=== PATIENT | female | born 1940 ===

== ENCOUNTER 2018-07-31 16:16 | Observation (INO) | payer MEDICARE ==
--- NOTE | 2018-07-31 16:39 | C.PDOC ---
History Of Present Illness 78 y/o female presents to ED with family member complaining of new confusion that has been going on for 5-6 hours. As per family member, patient has new left sided facial droop since this afternoon; however patient states "I'm fine. I don't know why I'm here." Denies any physical complaints. HPI is limited due to patient's clinical condition. Time Seen by Provider: 07/31/18 16:38 Chief Complaint (Nursing): Altered Mental Status History Per: Family History/Exam Limitations: None Onset/Duration Of Symptoms: Hrs Past Medical History Reviewed: Historical Data, Nursing Documentation, Vital Signs Vital Signs: Last Vital Signs Temp 98.8 F 07/31/18 16:32 Pulse 107 H 07/31/18 16:32 Resp 16 07/31/18 16:32 BP 160/70 H 07/31/18 16:32 Pulse Ox 95 07/31/18 16:32 Family History: States: No Known Family Hx - Social History Hx Alcohol Use: No Hx Substance Use: No - Immunization History Hx Tetanus Toxoid Vaccination: No Hx Influenza Vaccination: No Hx Pneumococcal Vaccination: No Review Of Systems Except As Marked, All Systems Reviewed And Found Negative. Review Of Systems: ROS cannot be obtained secondary to pt's inabilty to answer questions. Neurological: Positive for: Confusion, Other (Left sided facial droop) Physical Exam - Physical Exam Appears: Non-toxic, No Acute Distress Skin: Warm, Dry Head: Atraumatic, Normacephalic Eye(s): bilateral: Normal Inspection Oral Mucosa: Moist Cardiovascular: Rhythm Regular, No Murmur Respiratory: Normal Breath Sounds, No Rales, No Rhonchi, No Wheezing Gastrointestinal/Abdominal: Soft, No Tenderness Extremity: Bilateral: Atraumatic, Normal Color And Temperature Neurological/Psych: Other (see NIH) ED Course And Treatment - Laboratory Results Result Diagrams: 07/31/18 16:44 07/31/18 16:44 ECG: Interpreted By Me, Viewed By Me ECG Rhythm: Sinus Rhythm, L BBB Rate From EC O2 Sat by Pulse Oximetry: 95 (RA) Pulse Ox Interpretation: Normal - Other Rad Chest X-Ray X-Ray: Read By Radiologist Interpretation: FINDINGS: LUNGS: Clear. PLEURA: No pneumothorax or pleural fluid seen. CARDIOVASCULAR: No aortic atherosclerotic calcification present. Normal. OSSEOUS STRUCTURES: Chronic right rotator cuff insufficiency. No osseous fracture identified. VISUALIZED UPPER ABDOMEN: Normal. OTHER FINDINGS: None. IMPRESSION: No active disease. - CT Scan/US CTA Head/Neck Other Rad Studies (CT/US): Read By Radiologist, Radiology Report Reviewed CT/US Interpretation: FINDINGS: The aortic arch is patent. Some very minor calcified a sclerotic plaque seen along the aortic arch and transverse and proximal descending aortic arch. The common carotid arteries and carotid bifurcations are widely patent without evidence of occlusion or significant stenosis. Note that the carotid bifurcations are partially obscured by streak and beam hardening artifact arising from dental amalgam.. The distal internal carotid arteries including the petrous cavernous and supraclinoid segments are also patent. Tiny amount of plaque seen right carotid siphon. The vertebral arteries are also patent throughout right-sided which is slightly larger in caliber/more dominant than left side. The basilar artery is patent. There is a origin of the right posterior cerebral artery. The remaining visualized major branches of the [id number] are patent. Distal branches of the anterior middle and posterior cerebral arteries are also patent and relatively symmetric. No definitive evidence of large aneurysm nor vascular malformation. IMPRESSION: Unremarkable CT angiogram of the neck and brain CT Head Other Rad Studies (CT/US): Read By Radiologist, Radiology Report Reviewed CT/US Interpretation: FINDINGS: HEMORRHAGE: No intracranial hemorrhage. BRAIN: No mass effect or edema. No significant atrophy. Moderate patchy and confluent periventricular and deep/subcortical white matter lucency consistent with microvascular white matter ischemic change. No evidence of acute infarct. VENTRICLES: Unremarkable. No hydrocephalus. CALVARIUM: Unremarkable. PARANASAL SINUSES: Unremarkable as visualized. No significant inflammatory changes. MASTOID AIR CELLS: Unremarkable as visualized. No inflammatory changes. OTHER FINDINGS: None. IMPRESSION: No evidence of acute infarct. No intracranial mass or hemorrhage. Moderate chronic white matter ischemic change. NIHSS Stroke Scale - Date/Time Evaluation Performed Date Performed: 07/31/18 Time Performed: 16:39 When Was NIHSS Performed: Baseline - How Severe is the Stoke Level of Consciousness: 0=Alert LOC to Questions: 0=Both comments correct LOC to commands: 0=Obeys both correctly Best Gaze: 0=Normal Visual: 0=No visual loss Facial: 1=Minor asymmetry Motor Arm - Left: 0=No drift Motor Arm - Right: 0=No drift Motor Leg - Left: 0=No drift Motor Leg - Right: 0=No drift Limb Ataxia: 0=Absent Sensory: 0=Normal Best Language: 0=No aphasia Dysarthia: 1=Mild to moderate slurring Extinction & Inattention (Neglect): 0=Normal, no object Score: 2 Progress - Re-Evaluation Re-evaluation Note: 07/31/18 17:17 d/w dr sahu CT REVIEWED. WILL EVAL IN ER 07/31/18 17:[address] SAHU. POSSIBLE BELLS? RECOMMEND ADMIT, MRI WILL CONSULT 07/31/18 17:[address] Rob SONG [employer] - Data Reviewed Data Reviewed: Lab, Diagnostic imaging, EKG, Old records rTPA Inclusion/Exclusion - Refusal of Treatment Patient Refused Treatment: No - Inclusion Criteria for Altepase Patient is 18 years or Older: Yes Clinical DX Ischemic Stroke Cause Neurological Deficit: Yes Time of Onset Established Less Than 270 Mins Before TX Begin: Yes Risk/Benefit Discussed With Patient/Family Member Present: Yes - Exclusion Criteria for Altepase Uncontrolled Hypertension at Time of TX (SBP>185 or DBP>110): No Active Internal Bleeding: No Known Bleeding Diathesis: No Evidence of an Intracranial Hemorrhage: No Evidence Major Acute Infarct w/ Signs Greater Than 1/3 MCA: No Suspicion of Subarachnoid Bleed on PreTX Eval(CT: neg bleed): No - Warning to TPA With Conditions Following Conditions Weighed Against Anticipated Benefit: No Condition: Stroke Serevity Too Mild, Age Greater Than 75 years Medical Decision Making Medical Decision Making: Plan: --CTA Head --CT Head --EKG --Bloodwork --Bloodwork --Chest X-Ray --IV fluids Disposition Counseled Patient/Family Regarding: Studies Performed, Diagnosis - Disposition Disposition: HOSPITALIZED Disposition Time: 17:23 Condition: SERIOUS - Clinical Impression Clinical Impression: TIA (transient ischemic attack), Aldana's palsy - Scribe Statement The provider has reviewed the documentation as recorded by the Danis Zapata Provider Attestation: All medical record entries made by the Lluviaibbouchra were at my direction and personally dictated by me. I have reviewed the chart and agree that the record accurately reflects my personal performance of the history, physical exam, medical decision making, and the department course for this patient. I have also personally directed, reviewed, and agree with the discharge instructions and disposition.
[2018-07-31 16:48] LABS: BASO % 0.1 % (0.0-2.0); HEMOGLOBIN 12.1 g/dL (11.0-16.0); LYMPH # 0.4 K/uL (1.0-4.3); LYMPH % 3.6 % (20.0-40.0); MEAN CELL VOLUME 87.8 fL (81.0-99.0); MEAN CORPUSCULAR HEMOGLOBIN 29.7 pg (27.0-31.0); MEAN CORPUSCULAR HGB CONC 33.9 g/dL (33.0-37.0); MEAN PLATELET VOLUME 7.4 fL (7.2-11.7); MONO # 0.9 K/uL (0.0-0.8); MONO % 7.9 % (0.0-10.0); NEUT # 10.2 K/uL (1.8-7.0); NEUT % 88.4 % (50.0-75.0); PLATELET COUNT 211 K/uL (130-400); RBC 4.06 Mil/uL (3.80-5.20); WHITE BLOOD COUNT 11.6 K/uL (4.8-10.8)
[2018-07-31 16:57] LABS: INR 1.2; PROTHROMBIN TIME 13.1 SECONDS (9.7-12.2)
[2018-07-31 17:05] LABS: ALB/GLOB RATIO 1.3 (1.0-2.1); ALBUMIN 3.7 g/dL (3.5-5.0); ALT/SGPT 28 U/L (9-52); AST/SGOT 42 U/L (14-36); BLOOD UREA NITROGEN 21 mg/dL (7-17); CALCIUM 8.6 mg/dl (8.6-10.4); GFR NON-AFRICAN AMERICAN > 60; HDL CHOLESTEROL 66 mg/dL (30-70)
[2018-07-31] MEDS ORDERED: Iodixanol 320 mg/ml 150 ml Bottle IV ONE (17:09)
[2018-07-31 17:16] LABS: LDL CHOLESTEROL 78 mg/dL (0-129)
--- NOTE | 2018-07-31 17:23 | CT ---
Date of service: 07/31/2018 PROCEDURE: CT HEAD WITHOUT CONTRAST. HISTORY: Code Stroke ams; L FACIAL WEAK COMPARISON: None available. TECHNIQUE: Axial computed tomography images were obtained through the head/brain without intravenous contrast. Radiation dose: Total exam DLP = 931.96 mGy-cm. This CT exam was performed using one or more of the following dose reduction techniques: Automated exposure control, adjustment of the mA and/or kV according to patient size, and/or use of iterative reconstruction technique. FINDINGS: HEMORRHAGE: No intracranial hemorrhage. BRAIN: No mass effect or edema. No significant atrophy. Moderate patchy and confluent periventricular and deep/subcortical white matter lucency consistent with microvascular white matter ischemic change. No evidence of acute infarct. VENTRICLES: Unremarkable. No hydrocephalus. CALVARIUM: Unremarkable. PARANASAL SINUSES: Unremarkable as visualized. No significant inflammatory changes. MASTOID AIR CELLS: Unremarkable as visualized. No inflammatory changes. OTHER FINDINGS: None. IMPRESSION: No evidence of acute infarct. No intracranial mass or hemorrhage. Moderate chronic white matter ischemic change. The findings were discussed by telephone with Dr. Cuevas at 5:04 p.m. on 07/31/2018.
--- NOTE | 2018-07-31 17:25 | CT ---
Date of service: 07/31/2018 PROCEDURE: CT Angiography of neck and brain HISTORY: AMS; LEFT FACIAL WEAKNESS COMPARISON: Comparison made with concurrent CT scan of the brain. TECHNIQUE: Contiguous axial images of the neck and brain were obtained from the level of the vertex of the skull to the superior mediastinum in the arteriographic phase of enhancement. Coronal and sagittal reformats or also generated. IV contrast dose: 100 cc Visipaque 320 Radiation dose: Total exam DLP = 411.31 mGy-cm. This CT exam was performed using one or more of the following dose reduction techniques: Automated exposure control, adjustment of the mA and/or kV according to patient size, and/or use of iterative reconstruction technique. FINDINGS: The aortic arch is patent. Some very minor calcified a sclerotic plaque seen along the aortic arch and transverse and proximal descending aortic arch. The common carotid arteries and carotid bifurcations are widely patent without evidence of occlusion or significant stenosis. Note that the carotid bifurcations are partially obscured by streak and beam hardening artifact arising from dental amalgam.. The distal internal carotid arteries including the petrous cavernous and supraclinoid segments are also patent. Tiny amount of plaque seen right carotid siphon. The vertebral arteries are also patent throughout right-sided which is slightly larger in caliber/more dominant than left side. The basilar artery is patent. There is a origin of the right posterior cerebral artery. The remaining visualized major branches of the [id number] are patent. Distal branches of the anterior middle and posterior cerebral arteries are also patent and relatively symmetric. No definitive evidence of large aneurysm nor vascular malformation. IMPRESSION: Unremarkable CT angiogram of the neck and brain
[2018-07-31] MEDS: Sodium Chloride 0.9% 1,000 ML IV SCH (17:31)
[2018-07-31 17:35] LABS: LYMPHOCYTE 3 % (20-40); MONOCYTE 3 % (0-10); NEUTROPHIL 94 % (50-75); PLATELET ESTIMATE NORMAL (NORMAL); TOTAL CELLS COUNTED 100
--- NOTE | 2018-07-31 18:03 | RAD ---
Date of service: 07/31/2018 PROCEDURE: CHEST RADIOGRAPH, 1 VIEW HISTORY: CODE STROKE COMPARISON: None available. FINDINGS: LUNGS: Clear. PLEURA: No pneumothorax or pleural fluid seen. CARDIOVASCULAR: No aortic atherosclerotic calcification present. Normal. OSSEOUS STRUCTURES: Chronic right rotator cuff insufficiency. No osseous fracture identified VISUALIZED UPPER ABDOMEN: Normal. OTHER FINDINGS: None. IMPRESSION: No active disease.
--- NOTE | 2018-07-31 18:07 | CP.PCM.HP ---
Past Patient History - Past Social History Smoking Status: Never Smoked - CARDIAC Hx Cardiac Disorders: (HX DENIED) - PSYCHIATRIC Hx Substance Use: No Meds Allergies/Adverse Reactions: Allergies Allergy/AdvReac Type Severity Reaction Status Date / Time No Known Allergies Allergy Unverified 07/31/18 16:36 Physical Exam - Constitutional Appears: Well - Head Exam Head Exam: ATRAUMATIC, NORMAL INSPECTION, NORMOCEPHALIC - Eye Exam Eye Exam: EOMI, Normal appearance, PERRL Pupil Exam: NORMAL ACCOMODATION, PERRL - ENT Exam ENT Exam: Mucous Membranes Moist, Normal Exam - Neck Exam Neck exam: Positive for: Normal Inspection - Respiratory Exam Respiratory Exam: Decreased Breath Sounds - Cardiovascular Exam Cardiovascular Exam: REGULAR RHYTHM, +S1, +S2 - GI/Abdominal Exam GI & Abdominal Exam: Diminished Bowel Sounds, Soft - Rectal Exam Rectal Exam: Deferred Results - Vital Signs Recent Vital Signs: Last Vital Signs Temp 99.5 F 07/31/18 17:24 Pulse 101 H 07/31/18 17:24 Resp 20 07/31/18 17:24 BP 123/55 L 07/31/18 17:24 Pulse Ox 95 07/31/18 17:28 - Labs Result Diagrams: 07/31/18 16:44 07/31/18 16:44 Labs: Laboratory Results - last 24 hr 07/31/18 07/31/18 07/31/18 16:44 16:44 16:44 WBC 11.6 H RBC 4.06 Hgb 12.1 Hct 35.6 MCV 87.8 MCH 29.7 MCHC 33.9 RDW 13.0 Plt Count 211 MPV 7.4 Neut % (Auto) 88.4 H Lymph % (Auto) 3.6 L [place] % (Auto) 7.9 Eos % (Auto) 0.0 Baso % (Auto) 0.1 Neut # (Auto) 10.2 H Lymph # (Auto) 0.4 L [place] # (Auto) 0.9 H Eos # (Auto) 0.0 Baso # (Auto) 0.0 Neutrophils % (Manual) 94 H Lymphocytes % (Manual) 3 L Monocytes % (Manual) 3 Platelet Estimate Normal PT 13.1 H INR 1.2 APTT 29 Sodium 128 L Potassium 4.2 Chloride 91 L Carbon Dioxide 24 Anion Gap 17 BUN 21 H Creatinine 0.8 Est GFR ( Amer) > 60 Est GFR (Non-Af Amer) > 60 Random Glucose 176 H Hemoglobin A1c Calcium 8.6 Total Bilirubin 0.6 AST 42 H ALT 28 Alkaline Phosphatase 66 Troponin I 0.0680 Total Protein 6.5 Albumin 3.7 Globulin 2.9 Albumin/Globulin Ratio 1.3 Triglycerides 61 Cholesterol 155 LDL Cholesterol Direct 78 HDL Cholesterol 66 Blood Type Antibody Screen 07/31/18 07/31/18 16:44 16:44 WBC RBC Hgb Hct MCV MCH MCHC RDW Plt Count MPV Neut % (Auto) Lymph % (Auto) [place] % (Auto) Eos % (Auto) Baso % (Auto) Neut # (Auto) Lymph # (Auto) [place] # (Auto) Eos # (Auto) Baso # (Auto) Neutrophils % (Manual) Lymphocytes % (Manual) Monocytes % (Manual) Platelet Estimate PT INR APTT Sodium Potassium Chloride Carbon Dioxide Anion Gap BUN Creatinine Est GFR ( Amer) Est GFR (Non-Af Amer) Random Glucose Hemoglobin A1c 5.7 Calcium Total Bilirubin AST ALT Alkaline Phosphatase Troponin I Total Protein Albumin Globulin Albumin/Globulin Ratio Triglycerides Cholesterol LDL Cholesterol Direct HDL Cholesterol Blood Type O POSITIVE Antibody Screen Negative Assessment & Plan - Assessment and Plan (Free Text) Plan: Aspirin Rocephin Crestor Lovenox Morphine Neurology Cardiology
--- NOTE | 2018-07-31 18:16 | CP.PCM.CON ---
History of Present Illness - History of Present Illness History of Present Illness: Neurology Consultation Note: Mrs. Steele is a 78-year-old woman with no significant past medical history, who was referred to me by Dr. Cuevas for left facial droop and confusion. According to the patient's family, the symptoms started about 6 or 7 hours ago. On exam, the patient did not have any peripheral weakness or sensory loss other than the left facial droop, which she was not aware of. She was also uncertain about the year and seemed slightly confused. Non-contrast CT scan of the head did not show any acute findings. Review of Systems - Review of Systems Systems not reviewed;Unavailable: Altered Mental Status Past Patient History - Past Social History Smoking Status: Never Smoked - CARDIAC Hx Cardiac Disorders: (HX DENIED) - PSYCHIATRIC Hx Substance Use: No Meds Allergies/Adverse Reactions: Allergies Allergy/AdvReac Type Severity Reaction Status Date / Time No Known Allergies Allergy Unverified 07/31/18 16:36 - Medications Medications: Current Medications Sodium Chloride (Sodium Chloride 0.9%) 1,000 mls @ 100 mls/hr IV .Q10H LINDA Last Admin: 07/31/18 17:31 Dose: 100 mls/hr Physical Exam - Constitutional Appears: Well - Head Exam Head Exam: ATRAUMATIC, NORMAL INSPECTION, NORMOCEPHALIC - Eye Exam Eye Exam: EOMI, Normal appearance, PERRL Pupil Exam: NORMAL ACCOMODATION, PERRL - ENT Exam ENT Exam: Mucous Membranes Moist, Normal Exam - Neck Exam Neck exam: Positive for: Normal Inspection - Respiratory Exam Respiratory Exam: Clear to Auscultation Bilateral, NORMAL BREATHING PATTERN - Cardiovascular Exam Cardiovascular Exam: REGULAR RHYTHM, +S1, +S2 - GI/Abdominal Exam GI & Abdominal Exam: Normal Bowel Sounds, Soft. absent: Tenderness - Rectal Exam Rectal Exam: Deferred - Extremities Exam Extremities exam: Positive for: normal inspection - Back Exam Back exam: NORMAL INSPECTION - Neurological Exam Neurological exam: Alert, CN II-XII Intact, Normal Gait, Oriented x3, Reflexes Normal Additional comments: Speech is clear, not dysarthric. Left facial droop and slight weakness with closure of the left eye. Forehead appears symmetrical. Slight left arm pronator drift. NIHSS = 3 - Psychiatric Exam Psychiatric exam: Normal Affect, Normal Mood - Skin Skin Exam: Dry, Intact, Normal Color, Warm Results - Vital Signs Recent Vital Signs: Last Vital Signs Temp 99.5 F 07/31/18 17:24 Pulse 101 H 07/31/18 17:24 Resp 20 07/31/18 17:24 BP 123/55 L 07/31/18 17:24 Pulse Ox 95 07/31/18 17:28 - Labs Result Diagrams: 07/31/18 16:44 07/31/18 16:44 Labs: Laboratory Results - last 24 hr 07/31/18 07/31/18 07/31/18 16:44 16:44 16:44 WBC 11.6 H RBC 4.06 Hgb 12.1 Hct 35.6 MCV 87.8 MCH 29.7 MCHC 33.9 RDW 13.0 Plt Count 211 MPV 7.4 Neut % (Auto) 88.4 H Lymph % (Auto) 3.6 L [place] % (Auto) 7.9 Eos % (Auto) 0.0 Baso % (Auto) 0.1 Neut # (Auto) 10.2 H Lymph # (Auto) 0.4 L [place] # (Auto) 0.9 H Eos # (Auto) 0.0 Baso # (Auto) 0.0 Neutrophils % (Manual) 94 H Lymphocytes % (Manual) 3 L Monocytes % (Manual) 3 Platelet Estimate Normal PT 13.1 H INR 1.2 APTT 29 Sodium 128 L Potassium 4.2 Chloride 91 L Carbon Dioxide 24 Anion Gap 17 BUN 21 H Creatinine 0.8 Est GFR ( Amer) > 60 Est GFR (Non-Af Amer) > 60 Random Glucose 176 H Hemoglobin A1c Calcium 8.6 Total Bilirubin 0.6 AST 42 H ALT 28 Alkaline Phosphatase 66 Troponin I 0.0680 Total Protein 6.5 Albumin 3.7 Globulin 2.9 Albumin/Globulin Ratio 1.3 Triglycerides 61 Cholesterol 155 LDL Cholesterol Direct 78 HDL Cholesterol 66 Blood Type Antibody Screen 07/31/18 07/31/18 16:44 16:44 WBC RBC Hgb Hct MCV MCH MCHC RDW Plt Count MPV Neut % (Auto) Lymph % (Auto) [place] % (Auto) Eos % (Auto) Baso % (Auto) Neut # (Auto) Lymph # (Auto) [place] # (Auto) Eos # (Auto) Baso # (Auto) Neutrophils % (Manual) Lymphocytes % (Manual) Monocytes % (Manual) Platelet Estimate PT INR APTT Sodium Potassium Chloride Carbon Dioxide Anion Gap BUN Creatinine Est GFR ( Amer) Est GFR (Non-Af Amer) Random Glucose Hemoglobin A1c 5.7 Calcium Total Bilirubin AST ALT Alkaline Phosphatase Troponin I Total Protein Albumin Globulin Albumin/Globulin Ratio Triglycerides Cholesterol LDL Cholesterol Direct HDL Cholesterol Blood Type O POSITIVE Antibody Screen Negative Assessment & Plan (1) Facial droop Assessment and Plan: Based on exam, it is difficult to determine if the is a Aldana's Palsy or due to a central cause. An ischemic stroke is possible, but the patient does not have significant neurological findings. An MRI of the brain without contrast is recommended. If this is normal, then we may start treatment of Aldana's Palsy with Acyclovir and Prednisone. Otherwise, I recommend aspirin 81 mg now. Continue permissive HTN (only treat BP higher than 220/110 mm Hg). Fluids with NS at 100 mL/hr. Thank you for this consultation. Status: Acute Priority: High
[2018-08-01] MEDS: Sodium Chloride 0.9% 1,000 ML IV SCH ×2 (01:54→22:47)
[2018-08-01] MEDS ORDERED: Pneumococcal 23-Valent Vaccine IM ONE (05:56)
--- NOTE | 2018-08-01 11:53 | CP.PCM.CON ---
History of Present Illness - History of Present Illness History of Present Illness: 78 y/o female presents to ED with family member complaining of new confusion that has been going on for 5-6 hours. As per family member, patient has new left sided facial droop as well as disorientation but no fever Review of Systems - Review of Systems All systems: reviewed and no additional remarkable complaints except - Constitutional Constitutional: As Per HPI - EENT Eyes: absent: As Per HPI, Blind Spots, Blurred Vision, Change in Vision, Decreased Night Vision, Diplopia, Discharge, Dry Eye, Exophthalmos, Floaters, Irritation, Itchy Eyes, Loss of Peripheral Vision, Pain, Photophobia, Requires Corrective Lenses, Sees Flashes, Spots in Vision, Tunnel Vision, Other Visual Disturbances, Loss of Vision, Other Ears: absent: As Per HPI, Decreased Hearing, Ear Discharge, Ear Pain, Tinnitus, Abnormal Hearing, Disequilibrium, Dizziness, Other Nose/Mouth/Throat: absent: As Per HPI, Epistaxis, Nasal Congestion, Nasal Discharge, Nasal Obstruction, Nasal Trauma, Nose Pain, Post Nasal Drip, Sinus Pain, Sinus Pressure, Bleeding Gums, Change in Voice, Dental Pain, Dry Mouth, Dysphagia, Halitosis, Hoarsness, Lip Swelling, Mouth Lesions, Mouth Pain, Odynophagia, Sore Throat, Throat Swelling, Tongue Swelling, Facial Pain, Neck Pain, Neck Mass, Other - Breasts Breasts: absent: As Per HPI, Change in Shape, Mass, Pain, Nipple Discharge, Nipple Inversion, Skin Changes, Swelling, Other - Cardiovascular Cardiovascular: As Per HPI - Respiratory Respiratory: absent: As Per HPI, Cough, Dyspnea, Hemoptysis, Dyspnea on Exe rtion, Wheezing, Snoring, Stridor, Pain on Inspiration, Chest Congestion, Excessive Mucous Production, Change in Mucous Color, Pain with Coughing, Other - Gastrointestinal Gastrointestinal: absent: As Per HPI, Abdominal Pain, Belching, Bloating, Change in Bowel Habits, Change in Stool Character, Coffee Ground Emesis, Constipation, Cramping, Diarrhea, Dyspepsia, Dysphagia, Early Satiety, Excessive Flatus, Fecal Incontinence, Heartburn, Hematemesis, Hematochezia, Loose Stools, Melena, Nausea, Odynophagia, Temesmus, Vomiting, Other - Genitourinary Genitourinary: absent: As Per HPI, Change in Urinary Stream, Difficulty Urinating, Dysuria, Flank Pain, Hematuria, Pyuria, Nocturia, Urinary Incontinence, Urinary Frequency, Urinary Hesitance, Urinary Urgency, Voiding Freq/Small Amts, Freq UTI, Hx Renal/Bladder Calculi, Hx /Renal Surgery, Bladder Distension, Other - Reproductive: Female Reproductive:Female: absent: As Per HPI, Amenorrhea, Amenorrhea/ Control, Currently Menstual, Cycle <21 Days, Cycle >35 Days, Cycle Variable, Menses 1-7 Days, Menses >/= 8 Days, Menses Variable, Cycle > 4 Weeks Between, No Menses for 6 Months, Heavy Menses, Light Menses, Normal Menses, Spotting Between Cycles, S/P Hysterectomy, Menopausal, Post Menopausal, Premenarche, Abnormal Vaginal Bleeding, Dysmenorrhea, Dyspareunia, Genital Lesions, Genital Pruritis, Pelvic Pain, Prolapse Symptoms, Sexual Dysfunction, Vaginal Discharge, Vaginal Dryness, Vaginal Odor, Vaginal Pruritis, Other - Menstruation Menstruation: absent: As Per HPI, Amenorrhea, Amenorrhea/ Control, Currently Menstual, Cycle <21 Days, Cycle >35 Days, Cycle Variable, Menses 1-7 Days, Menses >/= 8 Days, Menses Variable, Cycle > 4 Weeks Between, No Menses for 6 Months, Heavy Menses, Light Menses, Normal Menses, Spotting Between Cycles, S/P Hysterectomy, Menopausal, Post Menopausal, Premenarche, Abnormal Vaginal Bleeding, Dysmenorrhea, Other - Musculoskeletal Musculoskeletal: As Per HPI - Integumentary Integumentary: As Per HPI. absent: Acne, Alopecia, Bleeding Lesions, Change in Hair, Change in Nails, Change in Pigmentation, Changing Lesions, Dry Skin, Erythema, Furuncle, Hirsutism, Lesions, New Lesions, Non-Healing Lesions, Photosensitivity, Pruritus, Rash, Skin Pain, Skin Ulcer, Sores, Striae, Swelling, Unusual Bruising, Wounds, Jaundice, Other - Neurological Neurological: As Per HPI - Psychiatric Psychiatric: As Per HPI - Endocrine Endocrine: absent: As Per HPI, Change in Body Appearance, Change in Libido, Cold Intolorance, Deepening of Voice, Excessive Sweating, Fatigue, Flushing, Heat Intolorance, Increase in Ring/Shoe/Hat Size, Palpitations, Polydipsia, Polyphagia, Polyuria, Other Past Patient History - Past Medical History & Family History Past Medical History?: No - Past Social History Smoking Status: Never Smoked - CARDIAC Hx Cardiac Disorders: (HX DENIED) - MUSCULOSKELETAL/RHEUMATOLOGICAL Hx Falls: No - PSYCHIATRIC Hx Substance Use: No - SURGICAL HISTORY Hx Surgeries: Yes Hx Hysterectomy: Yes Hx Tonsillectomy: Yes - ANESTHESIA Hx Anesthesia: Yes Hx Anesthesia Reactions: No Hx Malignant Hyperthermia: No Has any member of the family had a problem w/ anesthesia?: No Meds Allergies/Adverse Reactions: Allergies Allergy/AdvReac Type Severity Reaction Status Date / Time No Known Allergies Allergy Unverified 07/31/18 16:36 - Medications Medications: Current Medications Aspirin (Aspirin) 325 mg PO DAILY [facility] Enoxaparin Sodium (Lovenox) 40 mg SC DAILY [facility] Sodium Chloride (Sodium Chloride 0.9%) 1,000 mls @ 100 mls/hr IV .Q10H [facility] Last Admin: 08/01/18 01:54 Dose: Not Given Ceftriaxone Sodium 1 gm/ (Sodium Chloride) 100 mls @ 100 mls/hr IVPB DAILY [facility]; Protocol Last Admin: 07/31/18 22:51 Dose: 100 mls/hr Morphine Sulfate (Morphine) 2 mg IVP Q6H PRN PRN Reason: Pain, severe (8-10) Rosuvastatin Calcium (Crestor) 10 mg PO HS [facility] Last Admin: 07/31/18 22:51 Dose: 10 mg Physical Exam - Constitutional Appears: Non-toxic, Confused, Chronically Ill - Head Exam Head Exam: NORMOCEPHALIC - Eye Exam Eye Exam: absent: Scleral icterus - ENT Exam ENT Exam: Normal Oropharynx - Neck Exam Neck exam: Negative for: Lymphadenopathy - Respiratory Exam Respiratory Exam: Decreased Breath Sounds - Cardiovascular Exam Cardiovascular Exam: REGULAR RHYTHM - GI/Abdominal Exam GI & Abdominal Exam: Diminished Bowel Sounds, Soft. absent: Tenderness - Rectal Exam Rectal Exam: Deferred - Exam Exam: NORMAL INSPECTION - Extremities Exam Extremities exam: Negative for: pedal edema - Back Exam Back exam: absent: CVA tenderness (L), CVA tenderness (R) - Neurological Exam Neurological exam: Alert, Altered Additional comments: facial weakness - Psychiatric Exam Psychiatric exam: Depressed - Skin Skin Exam: Dry Results - Vital Signs Recent Vital Signs: Last Vital Signs Temp 97.8 F 08/01/18 07:00 Pulse 144 H 08/01/18 08:38 Resp 20 08/01/18 07:00 BP 116/58 L 08/01/18 07:00 Pulse Ox 99 08/01/18 07:00 - Labs Result Diagrams: 07/31/18 16:44 07/31/18 16:44 Labs: Laboratory Results - last 24 hr 07/31/18 07/31/18 07/31/18 16:44 16:44 16:44 WBC 11.6 H RBC 4.06 Hgb 12.1 Hct 35.6 MCV 87.8 MCH 29.7 MCHC 33.9 RDW 13.0 Plt Count 211 MPV 7.4 Neut % (Auto) 88.4 H Lymph % (Auto) 3.6 L Barnwell % (Auto) 7.9 Eos % (Auto) 0.0 Baso % (Auto) 0.1 Neut # (Auto) 10.2 H Lymph # (Auto) 0.4 L Barnwell # (Auto) 0.9 H Eos # (Auto) 0.0 Baso # (Auto) 0.0 Neutrophils % (Manual) 94 H Lymphocytes % (Manual) 3 L Monocytes % (Manual) 3 Platelet Estimate Normal PT 13.1 H INR 1.2 APTT 29 Sodium 128 L Potassium 4.2 Chloride 91 L Carbon Dioxide 24 Anion Gap 17 BUN 21 H Creatinine 0.8 Est GFR ( Amer) > 60 Est GFR (Non-Af Amer) > 60 POC Glucose (mg/dL) Random Glucose 176 H Hemoglobin A1c Calcium 8.6 Total Bilirubin 0.6 AST 42 H ALT 28 Alkaline Phosphatase 66 Troponin I 0.0680 Total Protein 6.5 Albumin 3.7 Globulin 2.9 Albumin/Globulin Ratio 1.3 Triglycerides 61 Cholesterol 155 LDL Cholesterol Direct 78 HDL Cholesterol 66 Blood Type Antibody Screen 07/31/18 07/31/18 08/01/18 16:44 16:44 06:58 WBC RBC Hgb Hct MCV MCH MCHC RDW Plt Count MPV Neut % (Auto) Lymph % (Auto) Barnwell % (Auto) Eos % (Auto) Baso % (Auto) Neut # (Auto) Lymph # (Auto) Barnwell # (Auto) Eos # (Auto) Baso # (Auto) Neutrophils % (Manual) Lymphocytes % (Manual) Monocytes % (Manual) Platelet Estimate PT INR APTT Sodium Potassium Chloride Carbon Dioxide Anion Gap BUN Creatinine Est GFR ( Amer) Est GFR (Non-Af Amer) POC Glucose (mg/dL) 123 H Random Glucose Hemoglobin A1c 5.7 Calcium Total Bilirubin AST ALT Alkaline Phosphatase Troponin I Total Protein Albumin Globulin Albumin/Globulin Ratio Triglycerides Cholesterol LDL Cholesterol Direct HDL Cholesterol Blood Type O POSITIVE Antibody Screen Negative Assessment & Plan (1) Aldana's palsy Status: Acute (2) Facial droop Status: Acute Priority: High (3) TIA (transient ischemic attack) Status: Acute - Assessment and Plan (Free Text) Assessment: consider LP if MRI neg check HSV , Lyme etc started rocephin, acyclovir neuro eval in progress
[2018-08-01] MEDS: Enoxaparin 40 mg Syringe SC SCH (12:02)
[2018-08-01] MEDS ORDERED: Acyclovir 500 MG in Sodium Chloride 0.9% 100 ML IV SCH (13:00)
--- NOTE | 2018-08-01 14:17 | CP.PCM.PN ---
<Derek Albarado - Last Filed: 08/01/18 14:45> Subjective - Date & Time of Evaluation Date of Evaluation: 08/01/18 Time of Evaluation: 12:00 - Subjective Subjective: PGY2 Neuro Note for Dr. Hays Patient seen and examined this morning at bedside. No acute events overnight. Patient is pleasantly demented, orientated to self but not place or time (stated it was August 1981). Patient has no complaints at this time. Objective - Vital Signs/Intake and Output Vital Signs (last 24 hours): Temp Pulse Resp BP Pulse Ox 97.8 F 144 H 20 116/58 L 99 08/01/18 07:00 08/01/18 08:38 08/01/18 07:00 08/01/18 07:00 08/01/18 07:00 Intake and Output: 08/01/18 08/01/18 06:59 18:59 Intake Total 800 Balance 800 - Medications Medications: Current Medications Aspirin (Aspirin) 325 mg PO DAILY [facility] Last Admin: 08/01/18 12:02 Dose: 325 mg Enoxaparin Sodium (Lovenox) 40 mg SC DAILY [facility] Last Admin: 08/01/18 12:02 Dose: 40 mg Famotidine (Pepcid) 40 mg PO DAILY [facility] Sodium Chloride (Sodium Chloride 0.9%) 1,000 mls @ 100 mls/hr IV .Q10H [facility] Last Admin: 08/01/18 01:54 Dose: Not Given Ceftriaxone Sodium 1 gm/ (Sodium Chloride) 100 mls @ 100 mls/hr IVPB DAILY [facility]; Protocol Last Admin: 08/01/18 12:02 Dose: 100 mls/hr Morphine Sulfate (Morphine) 2 mg IVP Q6H PRN PRN Reason: Pain, severe (8-10) Prednisone (Prednisone Tab) 60 mg PO DAILY [facility]; Taper Stop: 09/19/18 13:44 Rosuvastatin Calcium (Crestor) 10 mg PO HS [facility] Last Admin: 07/31/18 22:51 Dose: 10 mg - Labs Labs: 07/31/18 16:44 07/31/18 16:44 PT 13.1 SECONDS (9.7-12.2) H 07/31/18 16:44 INR 1.2 07/31/18 16:44 APTT 29 SECONDS (21-34) 07/31/18 16:44 - Constitutional Appears: Well, No Acute Distress - Head Exam Head Exam: ATRAUMATIC, NORMAL INSPECTION, NORMOCEPHALIC - Eye Exam Eye Exam: EOMI, Normal appearance - ENT Exam ENT Exam: Mucous Membranes Moist - Neck Exam Neck Exam: Normal Inspection - Respiratory Exam Respiratory Exam: NORMAL BREATHING PATTERN. absent: Accessory Muscle Use - Extremities Exam Extremities Exam: Normal Inspection - Neurological Exam Neurological Exam: Alert, Awake, CN II-XII Intact. absent: Oriented x3 Additional comments: Speech is clear, not dysarthric. Mild left facial droop and no weakness with closure of the left eye. Forehead appears symmetrical. - Psychiatric Exam Psychiatric exam: Flat Affect, Normal Mood - Skin Skin Exam: Dry, Normal Color, Warm Assessment and Plan (1) Facial droop Assessment & Plan: Patient is still presenting with mild left sided facial droop. Due to forehead sparing, it is still possible that the patient may have a stroke without significant neurological findings. An MRI of the brain w/o contrast ordered. If this is normal, then we may start treatment of Aldana's Palsy with Acyclovir and Prednisone. Otherwise, I recommend aspirin 81 mg now. Continue permissive HTN (only treat BP higher than 220/110 mm Hg). It was discussed with patient and her that we recommended that she be on a soft diet at this time due to increased risk of aspiration. Patient stated she was hungry and would not stop eating. states he understands the risks that she may develop a pneumonia but states that he thinks she is ok to continue to eat. Recommending diet be changed to soft diet at this time. Case discussed with Dr. Saúl Albarado PGY2 Status: Acute <Chema Hays - Last Filed: 08/01/18 17:13> Objective - Vital Signs/Intake and Output Vital Signs (last 24 hours): Temp Pulse Resp BP Pulse Ox 97.9 F 100 H 20 136/72 97 08/01/18 16:30 08/01/18 16:30 08/01/18 16:30 08/01/18 16:30 08/01/18 16:30 Intake and Output: 08/01/18 08/01/18 06:59 18:59 Intake Total 800 Balance 800 - Medications Medications: Current Medications Aspirin (Aspirin) 325 mg PO DAILY [facility] Last Admin: 08/01/18 12:02 Dose: 325 mg Enoxaparin Sodium (Lovenox) 40 mg SC DAILY [facility] Last Admin: 08/01/18 12:02 Dose: 40 mg Famotidine (Pepcid) 40 mg PO DAILY [facility] Last Admin: 08/01/18 15:04 Dose: 40 mg Sodium Chloride (Sodium Chloride 0.9%) 1,000 mls @ 100 mls/hr IV .Q10H [facility] Last Admin: 08/01/18 01:54 Dose: Not Given Prednisone (Prednisone Tab) 60 mg PO DAILY [facility]; Taper Stop: 09/19/18 13:44 Last Admin: 08/01/18 15:04 Dose: 60 mg Rosuvastatin Calcium (Crestor) 10 mg PO HS [facility] Last Admin: 07/31/18 22:51 Dose: 10 mg - Labs Labs: 07/31/18 16:44 07/31/18 16:44 PT 13.1 SECONDS (9.7-12.2) H 07/31/18 16:44 INR 1.2 07/31/18 16:44 APTT 29 SECONDS (21-34) 07/31/18 16:44 Assessment and Plan - Assessment and Plan (Free Text) Assessment: All medical record entries made by the Resident were at my direction and personally dictated by me. I have reviewed the chart and agree that the record accurately reflects my personal performance of the history, physical exam, medical decision making, and the department course for this patient. I have also personally directed, reviewed, and agree with the discharge instructions and disposition.
--- NOTE | 2018-08-01 14:50 | CP.PCM.PN ---
Subjective - Date & Time of Evaluation Date of Evaluation: 08/01/18 Time of Evaluation: 14:47 - Subjective Subjective: PGY3 Note for Dr. Rob Ríos This patient originally came to the hospital for facial droop, slurred speech, and inability to ambulate for a few hours which prompted her to come into the ED. She has a past history of bells palsy, but this felt different especially when coupled with the lower extremity weakenss which has now resolved since admission. The patient does have advanced dementia as well, which makes subjective history taking quite hard. She denies all symptoms but is an unreliable historian. Objective - Vital Signs/Intake and Output Vital Signs (last 24 hours): Temp Pulse Resp BP Pulse Ox 97.8 F 144 H 20 116/58 L 99 08/01/18 07:00 08/01/18 08:38 08/01/18 07:00 08/01/18 07:00 08/01/18 07:00 Intake and Output: 08/01/18 08/01/18 06:59 18:59 Intake Total 800 Balance 800 - Medications Medications: Current Medications Aspirin (Aspirin) 325 mg PO DAILY [facility] Last Admin: 08/01/18 12:02 Dose: 325 mg Enoxaparin Sodium (Lovenox) 40 mg SC DAILY [facility] Last Admin: 08/01/18 12:02 Dose: 40 mg Famotidine (Pepcid) 40 mg PO DAILY [facility] Sodium Chloride (Sodium Chloride 0.9%) 1,000 mls @ 100 mls/hr IV .Q10H [facility] Last Admin: 08/01/18 01:54 Dose: Not Given Ceftriaxone Sodium 1 gm/ (Sodium Chloride) 100 mls @ 100 mls/hr IVPB DAILY [facility]; Protocol Last Admin: 08/01/18 12:02 Dose: 100 mls/hr Morphine Sulfate (Morphine) 2 mg IVP Q6H PRN PRN Reason: Pain, severe (8-10) Prednisone (Prednisone Tab) 60 mg PO DAILY [facility]; Taper Stop: 09/19/18 13:44 Rosuvastatin Calcium (Crestor) 10 mg PO HS [facility] Last Admin: 07/31/18 22:51 Dose: 10 mg - Labs Labs: 07/31/18 16:44 07/31/18 16:44 PT 13.1 SECONDS (9.7-12.2) H 07/31/18 16:44 INR 1.2 07/31/18 16:44 APTT 29 SECONDS (21-34) 07/31/18 16:44 - Constitutional Appears: Well, Non-toxic - Head Exam Additional comments: left sided facial and eye droop - Eye Exam Eye Exam: EOMI, PERRL Pupil Exam: PERRL - ENT Exam ENT Exam: Mucous Membranes Moist - Neck Exam Neck Exam: Full ROM - Respiratory Exam Respiratory Exam: Clear to Ausculation Bilateral, NORMAL BREATHING PATTERN. absent: Rales, Rhonchi, Wheezes - Cardiovascular Exam Cardiovascular Exam: REGULAR RHYTHM, +S1, +S2 - GI/Abdominal Exam GI & Abdominal Exam: Soft, Normal Bowel Sounds. absent: Tenderness - Extremities Exam Extremities Exam: Full ROM. absent: Calf Tenderness - Back Exam Back Exam: NORMAL INSPECTION. absent: CVA tenderness (L), CVA tenderness (R) - Neurological Exam Neurological Exam: Alert, Awake, Normal Gait, Oriented x3. absent: CN II-XII Intact Neuro motor strength exam: Left Upper Extremity: 5, Right Upper Extremity: 5, Left Lower Extremity: 5, Right Lower Extremity: 5 Additional comments: when patient closes eyes, patient is unable to wrinkle forehead on affected eye however is also bad at following commands in general - Psychiatric Exam Psychiatric exam: Normal Affect - Skin Skin Exam: Warm Assessment and Plan - Assessment and Plan (Free Text) Assessment: 78yo F admitted for Stroke vs [place] Palsy Stroke vs [place] Palsy -f/u imaging; CTA angio neck -f/u MRI head -started prophylactic acyclovir/prednisone for supposed bells palsy -Pepcid PO 40mg daily for PUD prophylaxis -ID on board, Dr. Moreira; f/u [facility]EN[facility], HIV, hep panel, RPR, ESR, HSV, [place] -Dr. Davis; neurology; appreciate recs -patient does have some cognitive impairment at baseline; dementia -crestor 20mg, aspirin 81mg Prophylaxis -Lovenox sc -Pepcid 40mg -patient was ambulating fine today; PT/OT Case discussed and seen with Dr. Rob Trevizo PGY3 NIHSS Scale ([place]) Time Performed: 14:49 - How Severe is the Stoke Baseline Level of Consciousness: 0=Alert LOC to Questions: 0=Both comments correct LOC to commands: 0=Obeys both correctly Best Gaze: 1=Partial gaze palsy Visual: 0=No visual loss Facial: 3=Complete unilateral paralysis Motor Arm - Left: 0=No drift Motor Arm - Right: 0=No drift Motor Leg - Left: 0=No drift Motor Leg - Right: 0=No drift Limb Ataxia: 0=Absent Sensory: 1=Mild to moderate loss Best Language: 1=Mild to moderate aphasia Dysarthia: 0=Normal articulation Extinction & Inattention (Neglect): 0=Normal, no object Score: 6 Risk Level: Mod Stroke Risk
[2018-08-01 15:34] LABS: URINE BACTERIA RARE (<OCC); URINE BILIRUBIN NEGATIVE (NEGATIVE); URINE BLOOD 3+ (NEGATIVE); URINE CLARITY Hazy (Clear); URINE COLOR Yellow (YELLOW); URINE GLUCOSE (UA) 1+ mg/dL (Normal); URINE LEUKOCYTE ESTERASE 3+ Leu/uL (Negative); URINE PROTEIN 1+ mg/dL (NEGATIVE); URINE UROBILINOGEN NORMAL mg/dL (0.2-1.0)
--- NOTE | 2018-08-01 19:04 | MRI ---
Date of service: 08/01/2018 PROCEDURE: MRI BRAIN WITHOUT CONTRAST HISTORY: facial droop, r/o cva COMPARISON: Comparison is made with the previous CT and CTA dated 07/31/2018 TECHNIQUE: Multiplanar, multisequence MR images of the brain were obtained without intravenous contrast enhancement. FINDINGS: HEMORRHAGE: None DWI: No evidence of an acute or early subacute infarction. BRAIN PARENCHYMA: No mass effect or edema. Volume loss and moderate white matter changes are noted VENTRICLES: Unremarkable. No hydrocephalus. CRANIUM: Unremarkable. ORBITS: Grossly unremarkable. PARANASAL SINUSES/MASTOIDS: Clear VASCULAR SYSTEM: Skull base flow voids intact. OTHER FINDINGS: None. IMPRESSION: No evidence of acute infarction. No evidence of acute intracranial hemorrhage. Volume loss and white matter changes suggestive of chronic microvascular ischemic disease.
--- NOTE | 2018-08-01 23:56 | CP.PCM.PN ---
Subjective - Date & Time of Evaluation Date of Evaluation: 08/01/18 Time of Evaluation: 11:00 - Subjective Subjective: clinically same Objective - Vital Signs/Intake and Output Vital Signs (last 24 hours): Temp Pulse Resp BP Pulse Ox 97.9 F 100 H 20 136/72 97 08/01/18 16:30 08/01/18 16:30 08/01/18 16:30 08/01/18 16:30 08/01/18 16:30 - Medications Medications: Current Medications Aspirin (Aspirin) 325 mg PO DAILY [facility] Last Admin: 08/01/18 12:02 Dose: 325 mg Enoxaparin Sodium (Lovenox) 40 mg SC DAILY [facility] Last Admin: 08/01/18 12:02 Dose: 40 mg Famotidine (Pepcid) 40 mg PO DAILY [facility] Last Admin: 08/01/18 15:04 Dose: 40 mg Sodium Chloride (Sodium Chloride 0.9%) 1,000 mls @ 100 mls/hr IV .Q10H [facility] Last Admin: 08/01/18 22:47 Dose: Not Given Prednisone (Prednisone Tab) 60 mg PO DAILY [facility]; Taper Stop: 09/19/18 13:44 Last Admin: 08/01/18 15:04 Dose: 60 mg Rosuvastatin Calcium (Crestor) 10 mg PO HS [facility] Last Admin: 08/01/18 22:47 Dose: 10 mg - Labs Labs: 07/31/18 16:44 07/31/18 16:44 PT 13.1 SECONDS (9.7-12.2) H 07/31/18 16:44 INR 1.2 07/31/18 16:44 APTT 29 SECONDS (21-34) 07/31/18 16:44 - Constitutional Appears: Well - Head Exam Head Exam: ATRAUMATIC, NORMAL INSPECTION, NORMOCEPHALIC - Eye Exam Eye Exam: EOMI, Normal appearance, PERRL Pupil Exam: NORMAL ACCOMODATION, PERRL - ENT Exam ENT Exam: Mucous Membranes Moist, Normal Exam - Neck Exam Neck Exam: Full ROM, Normal Inspection. absent: Lymphadenopathy - Respiratory Exam Respiratory Exam: Decreased Breath Sounds - Cardiovascular Exam Cardiovascular Exam: REGULAR RHYTHM, +S1, +S2 - GI/Abdominal Exam GI & Abdominal Exam: Soft, Diminished Bowel Sounds - Rectal Exam Rectal Exam: Deferred
--- NOTE | 2018-08-02 06:44 | CARD ---
APPROVED REPORT Date of service: 08/01/2018 EXAM: Two-dimensional and M-mode echocardiogram with Doppler and color Doppler. Other Information Quality : GoodRhythm : INDICATION CVA/TIA 2D DIMENSIONS IVSd1.2 (0.7-1.1cm)LVDd4.8 (3.9-5.9cm) PWd1.0 (0.7-1.1cm)LA Oegxzt07 (18-58mL) LVDs3.0 (2.5-4.0cm)FS (%) 37.0 % LVEF (%)66.8 (>50%)LVEF (Hatfield's)65.49 % IVC0.00 cm M-Mode DIMENSIONS RVDd1.64 (2.1-3.2cm)Left Atrium (MM)3.61 (2.5-4.0cm) IVSd1.18 (0.7-1.1cm)Aortic Root2.83 (2.2-3.7cm) LVDd5.13 (4.0-5.6cm)Aortic Cusp Exc.1.77 (1.5-2.0cm) PWd1.00 (0.7-1.1cm)FS (%) 28 % LVDs3.71 (2.0-3.8cm)LVEF (%)55 (>50%) Mitral Valve MV E Lzmrxthj201.8cm/sMV A Jboqckrl550.6cm/sE/A ratio0.8 OPAE298.88 cm/s TDI Lateral E' Peak V4.29cm/sMedial E' Peak V5.51cm/sE/Lateral E'26.5 E/Medial E'20.7 Tricuspid Valve TR Peak Cegvncbz648pk/sTR Peak Gr.[id number] LEFT VENTRICLE The left ventricle is normal size. There is normal left ventricular wall thickness. Left ventricle systolic function is normal. The Ejection Fraction is 65-70%. There is normal LV segmental wall motion. Tissue Doppler imaging reveals abnormal left ventricular diastolic dysfunction. No left ventricle thrombus noted on this study. RIGHT VENTRICLE The right ventricle is normal size. There is normal right ventricular wall thickness. The right ventricular systolic function is normal. ATRIA The left atrium size is normal. The right atrium size is normal. The interatrial septum is intact with no evidence for an atrial septal defect. AORTIC VALVE The aortic valve is normal in structure. No aortic regurgitation is present. There is no aortic valvular stenosis. There is no aortic valvular vegetation. MITRAL VALVE The mitral valve is normal in structure. There is no evidence of mitral valve prolapse. There is no mitral valve stenosis. Mitral regurgitation is mild. TRICUSPID VALVE The tricuspid valve is normal in structure. There is mild tricuspid regurgitation. Right ventricular systolic pressure is estimated at 30-40 mmHg. There is mild pulmonary hypertension. PULMONIC VALVE The pulmonic valve is not well visualized. There is no pulmonic valvular regurgitation. GREAT VESSELS The aortic root is normal in size. PERICARDIAL EFFUSION There is no significant pericardial effusion. <Conclusion> Left ventricle systolic function is normal. The Ejection Fraction is 65-70%. Diastolic dysfunction. No aortic regurgitation is present. Mitral regurgitation is mild. There is mild tricuspid regurgitation. There is mild pulmonary hypertension. There is no pulmonic valvular regurgitation.
[2018-08-02 08:08] LABS: BASO % 0.1 % (0.0-2.0); HEMOGLOBIN 11.6 g/dL (11.0-16.0); LYMPH # 0.5 K/uL (1.0-4.3); LYMPH % 6.3 % (20.0-40.0); MEAN CELL VOLUME 87.9 fL (81.0-99.0); MEAN CORPUSCULAR HEMOGLOBIN 30.6 pg (27.0-31.0); MEAN CORPUSCULAR HGB CONC 34.8 g/dL (33.0-37.0); MEAN PLATELET VOLUME 8.2 fL (7.2-11.7); MONO # 0.6 K/uL (0.0-0.8); NEUT # 6.6 K/uL (1.8-7.0); NEUT % 85.6 % (50.0-75.0); PLATELET COUNT 189 K/uL (130-400); RBC 3.77 Mil/uL (3.80-5.20); RED CELL DISTRIBUTION WIDTH 13.3 % (11.5-14.5); WHITE BLOOD COUNT 7.7 K/uL (4.8-10.8)
[2018-08-02 08:22] LABS: BLOOD UREA NITROGEN 14 mg/dL (7-17); CALCIUM 8.7 mg/dl (8.6-10.4); GFR NON-AFRICAN AMERICAN > 60
[2018-08-02 09:13] LABS: ERYTHROCYTE SEDIMENTATION RATE 60 mm/hr (0-20)
[2018-08-02 09:15] LABS: LYMPHOCYTE 6 % (20-40); PLATELET ESTIMATE NORMAL (NORMAL); TOTAL CELLS COUNTED 100
[2018-08-02 09:16] LABS: HYPOCHROMIC SLIGHT; MONOCYTE 7 % (0-10); NEUTROPHIL 87 % (50-75)
[2018-08-02] MEDS: Potassium Chloride 20 mEq ER Tab PO SCH (10:29)
[2018-08-02] MEDS: Enoxaparin 40 mg Syringe SC SCH (10:32)
--- NOTE | 2018-08-02 12:10 | CP.PCM.PN ---
Subjective - Date & Time of Evaluation Date of Evaluation: 08/02/18 Time of Evaluation: 07:00 - Subjective Subjective: events noted + UTI IV rx in progress Objective - Vital Signs/Intake and Output Vital Signs (last 24 hours): Temp Pulse Resp BP Pulse Ox 97.5 F L 73 18 137/71 100 08/02/18 08:55 08/02/18 08:55 08/02/18 08:55 08/02/18 08:55 08/02/18 08:55 - Medications Medications: Current Medications Aspirin (Aspirin) 325 mg PO DAILY [facility] Last Admin: 08/02/18 10:23 Dose: 325 mg Enoxaparin Sodium (Lovenox) 40 mg SC DAILY [facility] Last Admin: 08/02/18 10:32 Dose: 40 mg Famotidine (Pepcid) 40 mg PO DAILY [facility] Last Admin: 08/02/18 10:25 Dose: 40 mg Sodium Chloride (Sodium Chloride 0.9%) 1,000 mls @ 100 mls/hr IV .Q10H [facility] Last Admin: 08/01/18 22:47 Dose: Not Given Potassium Chloride (K-Dur 20 Meq Er Tab) 40 meq PO BRK [facility] Last Admin: 08/02/18 10:29 Dose: 40 meq Prednisone (Prednisone Tab) 60 mg PO DAILY [facility]; Taper Stop: 09/19/18 13:44 Last Admin: 08/02/18 10:26 Dose: 60 mg Rosuvastatin Calcium (Crestor) 10 mg PO HS [facility] Last Admin: 08/01/18 22:47 Dose: 10 mg - Labs Labs: 08/02/18 07:59 08/02/18 07:59 PT 13.1 SECONDS (9.7-12.2) H 07/31/18 16:44 INR 1.2 07/31/18 16:44 APTT 29 SECONDS (21-34) 07/31/18 16:44 - Constitutional Appears: Non-toxic, Cachectic, Chronically Ill - Head Exam Head Exam: NORMOCEPHALIC - Eye Exam Eye Exam: absent: Scleral icterus - ENT Exam ENT Exam: Normal External Ear Exam - Neck Exam Neck Exam: absent: Lymphadenopathy - Respiratory Exam Respiratory Exam: Decreased Breath Sounds - Cardiovascular Exam Cardiovascular Exam: REGULAR RHYTHM - GI/Abdominal Exam GI & Abdominal Exam: Distended - Rectal Exam Rectal Exam: Deferred Assessment and Plan (1) Aldana's palsy Status: Acute (2) Facial droop Status: Acute (3) TIA (transient ischemic attack) Status: Acute - Assessment and Plan (Free Text) Assessment: await Lyme serology/ cultures
--- NOTE | 2018-08-02 12:46 | VASCLAB ---
Date of service: 08/01/2018 PROCEDURE: Carotid Duplex Exam. HISTORY: facial droop /tia COMPARISON: None available. TECHNIQUE: Grayscale and duplex Doppler evaluation of the cervical carotid and vertebral arteries were performed. The common carotid, carotid bifurcations and cervical Internal Carotid Artery (ICA) and proximal External Carotid Artery (ECA) were evaluated. The vertebral arteries were evaluated for gross patency and flow direction. Report prepared by EFE Murray FINDINGS: RIGHT CAROTID ARTERIES: 1. Common Carotid Artery: No significant focal plaque formation of the right common carotid artery. Maximum Peak Systolic velocity: 106 cm/sec: End-diastolic velocity 23 cm/sec. 2. Carotid Bifurcation: plaque formation. Maximum Peak Systolic velocity: 61 cm/sec: End-diastolic velocity 14 cm/sec. 3. Internal Carotid Artery: Plaque description: 3.1. Proximal Segment: Peak systolic velocity 67 cm/sec: End-diastolic velocity 18 cm/sec - % stenosis 0-15% 3.2. Middle Segment: Peak systolic velocity 53 cm/sec: End-diastolic velocity 13 cm/sec - % stenosis 0-15% 3.3. Distal Segment: Peak systolic velocity 53 cm/sec: End-diastolic velocity 9 cm/sec - % stenosis 0-15% 4. External Carotid Artery: No significant focal plaque formation. Peak systolic velocity 122 cm/sec 5. ICA/CCA Ratio: 0.6 LEFT CAROTID ARTERIES: 1. Common Carotid Artery: No significant focal plaque formation of the left common carotid artery. Maximum Peak Systolic velocity: 85 cm/sec: End-diastolic velocity 11 cm/sec. 2. Carotid Bifurcation: plaque formation. Maximum Peak Systolic velocity: 68 cm/sec: End-diastolic velocity 13 cm/sec. 3. Internal Carotid Artery: Plaque description: 3.1. Proximal Segment: Peak systolic velocity 81 cm/sec: End-diastolic velocity 18 cm/sec - % stenosis 0-15% 3.2. Middle Segment: Peak systolic velocity 43 cm/sec: End-diastolic velocity 10 cm/sec - % stenosis 0-15% 3.3. Distal Segment: Peak systolic velocity 69 cm/sec: End-diastolic velocity 11 cm/sec - % stenosis 0-15% 4. External Carotid Artery: No significant focal plaque formation. Peak systolic velocity 73 cm/sec 5. ICA/CCA Ratio: 0.9 VERTEBRAL ARTERIES: 1. Right Vertebral Artery: The right vertebral artery flow direction is antegrade. 2. Left Vertebral Artery: The left vertebral artery flow direction is antegrade. OTHER FINDINGS: 1. Right Brachial Blood pressure: 140 mmHg. 2. Left Brachial Blood pressure: 140 mmHg. 3. No atherosclerotic calcification present IMPRESSION: RIGHT: Duplex scan does not suggest hemodynamically significant stenosis of the right extracranial carotid arteries. LEFT: Duplex scan does not suggest hemodynamically significant stenosis of the left extracranial carotid arteries.
--- NOTE | 2018-08-02 13:00 | CP.PCM.PN ---
Subjective - Date & Time of Evaluation Date of Evaluation: 08/02/18 Time of Evaluation: 11:30 - Subjective Subjective: clinically same Objective - Vital Signs/Intake and Output Vital Signs (last 24 hours): Temp Pulse Resp BP Pulse Ox 97.5 F L 73 18 137/71 100 08/02/18 08:55 08/02/18 08:55 08/02/18 08:55 08/02/18 08:55 08/02/18 08:55 - Medications Medications: Current Medications Aspirin (Aspirin) 325 mg PO DAILY [facility] Last Admin: 08/02/18 10:23 Dose: 325 mg Enoxaparin Sodium (Lovenox) 40 mg SC DAILY [facility] Last Admin: 08/02/18 10:32 Dose: 40 mg Famotidine (Pepcid) 40 mg PO DAILY [facility] Last Admin: 08/02/18 10:25 Dose: 40 mg Sodium Chloride (Sodium Chloride 0.9%) 1,000 mls @ 100 mls/hr IV .Q10H [facility] Last Admin: 08/01/18 22:47 Dose: Not Given Potassium Chloride (K-Dur 20 Meq Er Tab) 40 meq PO BRK [facility] Last Admin: 08/02/18 10:29 Dose: 40 meq Prednisone (Prednisone Tab) 60 mg PO DAILY [facility]; Taper Stop: 09/19/18 13:44 Last Admin: 08/02/18 10:26 Dose: 60 mg Rosuvastatin Calcium (Crestor) 10 mg PO HS [facility] Last Admin: 08/01/18 22:47 Dose: 10 mg - Labs Labs: 08/02/18 07:59 08/02/18 07:59 PT 13.1 SECONDS (9.7-12.2) H 07/31/18 16:44 INR 1.2 07/31/18 16:44 APTT 29 SECONDS (21-34) 07/31/18 16:44 - Constitutional Appears: Well - Head Exam Head Exam: ATRAUMATIC, NORMAL INSPECTION, NORMOCEPHALIC - Eye Exam Eye Exam: EOMI, Normal appearance, PERRL Pupil Exam: NORMAL ACCOMODATION, PERRL - ENT Exam ENT Exam: Mucous Membranes Moist, Normal Exam - Neck Exam Neck Exam: Full ROM, Normal Inspection. absent: Lymphadenopathy - Respiratory Exam Respiratory Exam: Decreased Breath Sounds - Cardiovascular Exam Cardiovascular Exam: REGULAR RHYTHM, +S1, +S2 - GI/Abdominal Exam GI & Abdominal Exam: Soft, Diminished Bowel Sounds - Rectal Exam Rectal Exam: Deferred
--- NOTE | 2018-08-02 15:18 | CP.PCM.PN ---
Subjective - Date & Time of Evaluation Date of Evaluation: 08/02/18 Time of Evaluation: 12:00 - Subjective Subjective: PGY2 Neurology Note for Dr. Hays Patient seen and examined this morning at bedside. No acute events overnight. Patient seen sitting up eating at bedside, talking with her . Minimal facial droop on left side. No acute complaints at this time. Objective - Vital Signs/Intake and Output Vital Signs (last 24 hours): Temp Pulse Resp BP Pulse Ox 97.5 F L 73 18 137/71 100 08/02/18 08:55 08/02/18 08:55 08/02/18 08:55 08/02/18 08:55 08/02/18 08:55 - Medications Medications: Current Medications Aspirin (Aspirin) 325 mg PO DAILY [facility] Last Admin: 08/02/18 10:23 Dose: 325 mg Enoxaparin Sodium (Lovenox) 40 mg SC DAILY [facility] Last Admin: 08/02/18 10:32 Dose: 40 mg Famotidine (Pepcid) 40 mg PO DAILY [facility] Last Admin: 08/02/18 10:25 Dose: 40 mg Sodium Chloride (Sodium Chloride 0.9%) 1,000 mls @ 100 mls/hr IV .Q10H [facility] Last Admin: 08/01/18 22:47 Dose: Not Given Potassium Chloride (K-Dur 20 Meq Er Tab) 40 meq PO BRK [facility] Last Admin: 08/02/18 10:29 Dose: 40 meq Prednisone (Prednisone Tab) 60 mg PO DAILY [facility]; Taper Stop: 09/19/18 13:44 Last Admin: 08/02/18 10:26 Dose: 60 mg Rosuvastatin Calcium (Crestor) 10 mg PO HS [facility] Last Admin: 08/01/18 22:47 Dose: 10 mg - Labs Labs: 08/02/18 07:59 08/02/18 07:59 PT 13.1 SECONDS (9.7-12.2) H 07/31/18 16:44 INR 1.2 07/31/18 16:44 APTT 29 SECONDS (21-34) 07/31/18 16:44 - Constitutional Appears: No Acute Distress - Head Exam Head Exam: ATRAUMATIC, NORMAL INSPECTION, NORMOCEPHALIC - ENT Exam ENT Exam: Mucous Membranes Moist - Respiratory Exam Respiratory Exam: NORMAL BREATHING PATTERN. absent: Accessory Muscle Use - Neurological Exam Neurological Exam: Alert, Awake. absent: Oriented x3 Additional comments: Speech is clear, not dysarthric. Mild left facial droop. Forehead appears symmetrical. Patient is pleasantly demented. - Psychiatric Exam Psychiatric exam: Flat Affect - Skin Skin Exam: Dry, Normal Color, Warm Assessment and Plan (1) Aldana's palsy Assessment & Plan: Brain MRI 08/01/18: No evidence of acute infarction. No evidence of acute intracranial hemorrhage. 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 MRI shows patient did not have acute CVA. Left sided facial droop is believed to be secondary to Aldana's palsy. She is to be started on Acyclovir 800mg PO TID x 10 days and Prednisone taper (60mg daily x 2 weeks, 40mg daily x 2 weeks, 20mg daily x 2 weeks, 10mg daily x 2 weeks). An eye patch should be placed on the left eye with artificial tears used multiple times daily. Status: Acute (2) Dementia Assessment & Plan: Patient is to be started on Aricept 5mg PO qHS for dementia. Discussed risks and benefits with patient and . They agree and patient should be discharged h ome with this medication. Patient is cleared from neurological standpoint to be discharged home. Patient is to follow up with Dr. Hays in her office within 1 month. Case discussed with Dr. Saúl Baileyn PGY2 Status: Acute
[2018-08-02 17:02] VITALS: RESP 20
[2018-08-02] MEDS: Sodium Chloride 0.9% 1,000 ML IV SCH ×2 (18:45→23:02)
[2018-08-03 09:01] VITALS: BP 139/70; TEMP 97.5
[2018-08-03] MEDS: Potassium Chloride 20 mEq ER Tab PO SCH (09:16)
[2018-08-03] MEDS: Enoxaparin 40 mg Syringe SC SCH (09:16)
[2018-08-03 12:57] VITALS: PULSE 97
--- NOTE | 2018-08-03 13:10 | CP.PCM.PN ---
Subjective - Date & Time of Evaluation Date of Evaluation: 08/03/18 Time of Evaluation: 13:00 - Subjective Subjective: Patient seen today awake, alert, ox3, denies any dizziness, headache, blurred vision, slight facial droop vss and labs- stable Objective - Vital Signs/Intake and Output Vital Signs (last 24 hours): Temp Pulse Resp BP Pulse Ox 97.5 F L 97 H 20 139/70 98 08/03/18 08:59 08/03/18 12:17 08/03/18 08:59 08/03/18 08:59 08/03/18 08:59 Intake and Output: 08/03/18 08/03/18 06:59 18:59 Intake Total 480 Balance 480 - Medications Medications: Current Medications Acyclovir (Zovirax) 800 mg PO TID [facility]; Protocol Last Admin: 08/03/18 09:16 Dose: 800 mg Aspirin (Aspirin) 325 mg PO DAILY [facility] Last Admin: 08/03/18 09:15 Dose: 325 mg Donepezil HCl (Aricept) 5 mg PO HS [facility] Last Admin: 08/02/18 22:34 Dose: 5 mg Enoxaparin Sodium (Lovenox) 40 mg SC DAILY [facility] Last Admin: 08/03/18 09:16 Dose: 40 mg Famotidine (Pepcid) 40 mg PO DAILY [facility] Last Admin: 08/03/18 09:15 Dose: 40 mg Sodium Chloride (Sodium Chloride 0.9%) 1,000 mls @ 100 mls/hr IV .Q10H [facility] Last Admin: 08/02/18 23:02 Dose: 100 mls/hr Potassium Chloride (K-Dur 20 Meq Er Tab) 40 meq PO BRK [facility] Last Admin: 08/03/18 09:16 Dose: 40 meq Prednisone (Prednisone Tab) 60 mg PO DAILY [facility]; Taper Stop: 09/19/18 13:44 Last Admin: 08/03/18 09:15 Dose: 60 mg Rosuvastatin Calcium (Crestor) 10 mg PO HS [facility] Last Admin: 08/02/18 22:34 Dose: 10 mg - Labs Labs: 08/02/18 07:59 08/02/18 07:59 PT 13.1 SECONDS (9.7-12.2) H 07/31/18 16:44 INR 1.2 07/31/18 16:44 APTT 29 SECONDS (21-34) 07/31/18 16:44 Assessment and Plan - Assessment and Plan (Free Text) Assessment: A/P 78 yr old female admitted with Aldana's palsy seen by neuro cleared for discharge home with Acyclovir 800mg PO TID x 10 days and Prednisone taper (60mg daily x 2 weeks, 40mg daily x 2 weeks, 20mg daily x 2 weeks, 10mg daily x 2 weeks). An eye patch should be placed on the left eye with artificial tears used multiple times daily. D/w Dr. Ellis , cleared for discharge home today and f/u with PMD in 1 week Discharge plan discussed with patient who understands and agrees with plan RX given to patient
[2018-08-03 13:13] VITALS: O2SAT 99
--- NOTE | 2018-08-03 17:52 | CARD ---
APPROVED REPORT Date of service: 07/31/2018 EKG Measurement Heart [id number] <Conclusion> Normal sinus rhythm Left bundle branch block Abnormal ECG
== END 2018-08-03 14:13 | disposition home or self-care (01) ==
LOC: C.ER 16:16 → C.9E 17:25 → C.6T 08-01 03:26
PROVIDERS: ADMIT Internal Medicine Nephrology; ATTEND Internal Medicine Nephrology
DX: G45.9 Transient cerebral ischemic attack, unspecified (principal); F03.90 Unspecified dementia, unspecified severity, without behavioral disturbance, psychotic disturbance, mood disturbance, and anxiety; G51.0 Bell's palsy; I10 Essential (primary) hypertension
CPT/HCPCS: 36415; 70450; 70496; 70498; 70551; 71045; 80048; 80053; 80061; 81001; 82948; 83036; 83520; 84484; 85025; 85610; 85651; 85730; 86039; 86140; 86592; 86618; 86695; 86696; 86703; 86788; 86789; 86850; 86900; 87040; 87086; 92610; 93005; 93306; 93880; 96365; 97110; 97112; 97116; 97162; 97166; 97530; 97535; 99285; G0378; G8978; G8979; G8987; G8988; G8996; G8997; G8998; J0696; J1650; J7030; Q9967